=== PATIENT | female | born 1990 ===

== ENCOUNTER 2019-11-23 09:23 | Emergency (ER) | payer SELFPAY ==
[2019-11-23 10:34] LABS: ABSOLUTE EOSINOPHILS # (AUTO) 0.2 10^3/uL (0.0-0.6); ABSOLUTE LYMPHOCYTES (AUTO) 1.6 10^3/uL (0.5-4.7); ABSOLUTE MONOCYTES (AUTO) 0.6 10^3/uL (0.1-1.4); BASOPHILS % (AUTO) 0.2 % (0-2); EOSINOPHILS % (AUTO) 1.4 % (0-6); HEMATOCRIT 42.6 % (36.0-47.0); HEMOGLOBIN 14.5 g/dL (12.0-15.5); LYMPHOCYTES % (AUTO) 13.2 % (13-45); MEAN CORPUSCULAR HEMOGLOBIN 32.8 pg (27.0-33.4); MEAN CORPUSCULAR HGB CONC 34.1 g/dL (32.0-36.0); MEAN CORPUSCULAR VOLUME 96 fl (80-97); MONOCYTES % (AUTO) 4.8 % (3-13); PLATELET COUNT 345 10^3/uL (150-450); RED BLOOD COUNT 4.43 10^6/uL (3.72-5.28); RED CELL DISTRIBUTION WIDTH 13.2 % (11.5-14.0); SEGMENTED NEUTROPHILS % (AUTO) 80.4 % (42-78); TOTAL CELLS COUNTED % (AUTO) 100 %; WHITE BLOOD COUNT 12.5 10^3/uL (4.0-10.5)
[2019-11-23 10:45] LABS: APPEARANCE,URINE CLOUDY; BILIRUBIN,URINE NEGATIVE (NEGATIVE); COLOR,URINE YELLOW; GLUCOSE, URINE NEGATIVE (NEGATIVE); KETONES,URINE NEGATIVE (NEGATIVE); LEUKOCYTE ESTERASE,URINE LARGE (NEGATIVE); NITRITE,URINE NEGATIVE (NEGATIVE); PROTEIN,URINE 100 mg/dL (NEGATIVE); URINE SPECIFIC GRAVITY 1.016; UROBILINOGEN,URINE NEGATIVE mg/dL (<2.0)
--- NOTE | 2019-11-23 11:08 | ER Document Report ---
ED General - General Chief Complaint: Vaginal Bleeding Stated Complaint: VAGINAL BLEEDING Time Seen by Provider: 11/23/19 10:59 Primary Care Provider: [facility] [Provider Group] - Follow up in 1 week - [facility] Notes: 29-year-old female to the emergency department with complaints of vaginal bleed ing since yesterday. She states that she is only seeing it when she wipes or when she urinates. She does admit to urinary frequency and urgency to urinate over the past 2 days. Denies any nausea or vomiting. Denies any abdominal pain or low back pain. She states that her last menstrual period was November 04. She does not think that she is . She is not particularly concerned for STD but she would like to be tested. - Related Data Allergies/Adverse Reactions: No Known Allergies Allergy (Unverified 11/23/19 09:34) Past Medical History - General Information source: Patient - Social History Smoking Status: Current Every Day Smoker Chew tobacco use (# tins/day): No Frequency of alcohol use: None Drug Abuse: None, Marijuana Family History: Reviewed & Not Pertinent Patient has homicidal ideation: No Review of Systems - Review of Systems Constitutional: denies: Chills, Fever EENT: No symptoms reported Cardiovascular: denies: Chest pain, Palpitations, Heart racing, Dizziness, Lightheaded Respiratory: denies: Cough, Short of breath Gastrointestinal: denies: Abdominal pain, Diarrhea, Nausea, Vomiting Genitourinary: Frequency, Urgency Female Genitourinary: Vaginal bleeding Musculoskeletal: No symptoms reported Skin: No symptoms reported Hematologic/Lymphatic: No symptoms reported Neurological/Psychological: No symptoms reported -: Yes All other systems reviewed and negative Physical Exam - Vital signs Vitals: Temp Pulse Resp BP Pulse Ox 98.7 F 98 16 109/57 L 100 11/23/19 09:27 11/23/19 09:27 11/23/19 09:27 11/23/19 09:27 11/23/19 09:27 Interpretation: Normal - General General appearance: Appears well, Alert In distress: None - HEENT Head: Normocephalic, Atraumatic Eyes: Normal Pupils: PERRL - Respiratory Respiratory status: No respiratory distress Chest status: Nontender Breath sounds: Normal. No: Rales, Rhonchi, Wheezing Chest palpation: Normal - Cardiovascular Rhythm: Regular Heart sounds: Normal auscultation Murmur: No - Abdominal Inspection: Normal Distension: No distension Bowel sounds: Normal Tenderness: Nontender. No: Tender, McBurney's point, King's sign, Guarding, Rebound Organomegaly: No organomegaly - Genitourinary Notes: Bimanual and speculum exam performed. SUZANNE arroyo. GC and chlamydial swabs as well as wet mount obtained. There is no vaginal bleeding. There is no cervical motion tenderness and no adnexal tenderness. There is no adnexal fullness. There is no lesions. There is then white vaginal discharge. External genitalia is within normal limits. - Back Back: Normal. 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 Noted lab work. Blood work is stable. She is not . Urinalysis shows UTI. Gave patient a shot of Rocephin here and will send home with Keflex. She is to return if any worsening symptoms. She would like to be called with results for gonorrhea chlamydia as well as wet mount. - Vital Signs Vital signs: Temp Pulse Resp BP Pulse Ox 97.9 F 76 16 95/59 L 100 11/23/19 12:38 11/23/19 12:38 11/23/19 09:27 11/23/19 12:38 11/23/19 12:38 - Laboratory Result Diagrams: 11/23/19 10:10 Laboratory results interpreted by me: 11/23/19 11/23/19 09:50 10:10 WBC 12.5 H Absolute Neuts (auto) 10.0 H Seg Neutrophils % 80.4 H Urine Protein 100 H Urine Blood MODERATE H Ur Leukocyte Esterase LARGE H Discharge - Discharge Clinical Impression: Urgency of micturition, Urinary frequency UTI (urinary tract infection) Qualifiers: Urinary tract infection type: acute cystitis Hematuria presence: with hematuria Qualified Code(s): N30.01 - Acute cystitis with hematuria Condition: Stable Disposition: HOME, SELF-CARE Instructions: Urinary Tract Infection ([facility]) Additional Instructions: Push fluids. Return if worse. Take all antibiotics. Follow up with primary care. Prescriptions: Cephalexin Monohydrate [Keflex 500 mg Capsule] 500 mg PO BID 7 Days #14 capsule Referrals: [facility] [Provider Group] - Follow up in 1 week
[2019-11-23] MEDS ORDERED: CEFTRIAXONE INJ 500 MG VIAL IM ONE (11:13)
[2019-11-23] MEDS ORDERED: LIDOCAINE 1% INJ-PF (10 MG/ML) 30 ML SDV IM ONE (11:13)
[2019-11-23 12:39] VITALS: BP 95/59
[2019-11-23 12:47] LABS: EPITHELIALS (WET MOUNT) 4+ EPITHELIALS SEEN; RBCS (WET MOUNT) RARE RBCS SEEN; T.VAGINALIS (WET MOUNT) NO TRICHOMONAS SEEN; WBCS (WET MOUNT) NO WBCS SEEN; YEAST (WET MOUNT) NO YEAST SEEN
[2019-11-23 14:13] LABS: CHLAM PCR NOT DETECTED (NOT DETECT)
== END 2019-11-23 12:38 | disposition home or self-care (01) ==
LOC: ER 09:23
DX: N30.01 Acute cystitis with hematuria (principal); N93.8 Other specified abnormal uterine and vaginal bleeding; R35.0 Frequency of micturition; F17.200 Nicotine dependence, unspecified, uncomplicated; Z32.02 Encounter for pregnancy test, result negative
CPT/HCPCS: 99284; 96372; 36415; 87210; 85025; 81025; 81001; 87491; 87591; J3490; J0696